=== PATIENT | male | born 1945 | race Caucasian/White ===

== ENCOUNTER 2022-07-05 05:39 | Inpatient (IN) | payer MEDICARE ==
[2022-06-29 16:36] LABS: CLARITY,URINE CLEAR (Clear); GLUCOSE, URINE >=1000 mg/dl (Neg); KETONES,URINE NEGATIVE (Neg); LEUKOCYTE ESTERASE ,URINE NEGATIVE (Neg); NITRITES, URINE NEGATIVE (Neg); OCCULT BLOOD,URINE NEGATIVE (Neg); PROTEIN,URINE NEGATIVE (Neg); UROBILINOGEN,URINE 0.2 E.U/dL (0.2-1.0)
[2022-06-29 16:41] LABS: BASOPHILS % (AUTO) 0.6 % (0-1); EOSINOPHILS # (AUTO) 0.1 X10'3 (0-0.9); EOSINOPHILS % (AUTO) 1.2 % (0-6); LYMPHOCYTES # (AUTO) 1.7 X10'3 (1.1-4.8); LYMPHOCYTES % (AUTO) 24.4 % (21-51); MEAN CORPUSCULAR HEMOGLOBIN 29.6 PG (27.0-31.0); MEAN CORPUSCULAR HGB CONC 33.8 g/dL (33.0-36.5); MEAN CORPUSCULAR VOLUME 87.6 FL (78-98); MEAN PLATELET VOLUME 7.8 FL (7.4-10.4); MONOCYTES # (AUTO) 0.9 X10'3 (0-0.9); MONOCYTES % (AUTO) 12.1 % (2-12); NEUTROPHILS # (AUTO) 4.4 X10'3 (1.8-7.7); NEUTROPHILS % (AUTO) 61.7 % (42-75); PRE OP HEMATOCRIT 42.2 % (42.0-52.0); PRE OP HEMOGLOBIN 14.3 g/dL (14.0-17.9); PRE OP PLATELET COUNT 235 X10'3 (140-440); RED BLOOD COUNT 4.82 X10'6 (4.70-6.10); RED CELL DISTRIBUTION WIDTH 13.8 % (11.5-14.5)
[2022-06-29 16:48] LABS: ALBUMIN/GLOBULIN RATIO 1.2 (1.1-1.5); ALKALINE PHOSPHATASE 64 IU/L (46-116); BLOOD UREA NITROGEN 15 MG/DL (7-18); BUN/CREATININE RATIO 14.3 (5.4-32.0); CALCIUM 9.1 MG/DL (8.5-10.1); CHLORIDE 103 MMOL/L (99-107); CREATININE 1.05 MG/DL (0.60-1.10); PRE OP ALT 23 U/L (30-65); PRE OP ANION GAP 12 (8-16); PRE OP AST 20 U/L (10-37); PRE OP BILIRUB, TOTAL 0.3 MG/DL (0.0-1.0); PRE OP GLUCOSE 138 MG/DL (70-104); PRE OP POTASSIUM 3.7 MMOL/L (3.4-5.1); PRE OP SODIUM 141 MMOL/L (135-145); TOTAL CARBON DIOXIDE 26.3 MMOL/L (24-32); TOTAL PROTEIN 7.4 G/DL (6.4-8.2); eGFR 68 ML/MIN
[2022-06-29 17:00] LABS: COLOR,URINE STRAW (Yellow); UA COLLECTION TYPE CLN CATCH MIDSTREAM
[2022-06-29 17:10] LABS: BACTERIA,URINE NONE SEEN /HPF (Neg); MUCUS STRANDS FEW /LPF (Neg); RBC,URINE NONE SEEN /HPF (0-2); SQUAMOUS EPITHELIAL CELL,UR FEW /LPF (FEW); WBC,URINE 0-4 /HPF (0-4); YEAST FEW /HPF (NEGATIVE)
[2022-06-29 17:21] LABS: HEMOGLOBIN A1C 6.8 % (4.5-6.2)
[2022-07-05] VITALS (18 sets, daily range): BP systolic 119–152; BP diastolic 37–71
[~2022-07-05] VITALS: Ht 167.6 cm; Wt 89.2 kg
[~2022-07-05 05:39] MED LIST: CHOL100046 PO; CYAN250010 PO; EMPA25TA PO; ENAL2.5T69 PO; GABA300C PO; GLIM4TAB PO; INSU3INS2 SUBCUT; MAGN400C PO; METF-900 PO; ROSU20TA2 PO; ZET10T PO; ceFAZolin inj. 2,000 MG in dextrose 5%-water 100 ML IV ONE; famotidine 20mg tablet PO ONE; tranexamic acid 650mg tablet PO ONE; vancomycin 1,500 MG in NS 300ml IV soln IV ONE
--- NOTE | 2022-07-05 06:00 | NUR ---
CSM: PEDAL PULSES PRESENT. MUPIROCIN CREAM ORDERED FOR THIS PATIENT. PATIENT DID NOT WATCH VIDEO. PATIENT EDUCATED ON THE USE OF THE INCENTIVE SPIROMETER.
[2022-07-05] MEDS: ringers solution, lacted 1,000 ML IV SCH ×2 (07:01→19:13)
[2022-07-05] MEDS ORDERED: ROPIVAcaine 0.5% (5mg/ml) 30ml vial ONE ×2 (07:10→08:07)
[2022-07-05] MEDS ORDERED: ketorolac trometh. 30mg/ml inj. ONE (08:07)
[2022-07-05] MEDS ORDERED: ondansetron/PF 4mg/2ml inj ONE (08:30)
[2022-07-05] MEDS ORDERED: propofol inj 20 ML IV ONE (08:30)
[2022-07-05] MEDS ORDERED: LIDOcaine 2% (20mg/ml) 5ml vial ONE (08:30)
[2022-07-05] MEDS ORDERED: fentaNYL/PF 50MCG/1 ML 2ML syringe ONE (08:31)
[2022-07-05] MEDS ORDERED: dexamethasone sod phosphate 10mg/ml inj ONE (08:32)
[2022-07-05] MEDS ORDERED: sevoflurane 250ml liquid IH ONE (08:32)
[2022-07-05] MEDS ORDERED: labetalol 20mg/4ml (5mg/ml) syringe IV PRN (09:35)
[2022-07-05] MEDS ORDERED: morphine 2 MG/ML inj. syringe IV PRN (09:35)
[2022-07-05] MEDS ORDERED: hydrALAZINE 20mg/ml inj. IV PRN (09:35)
[2022-07-05] MEDS ORDERED: ROPIVAcaine 0.2%/PF PUMP/bolus 545 ML INTERSCALE SCH (09:35)
[2022-07-05] MEDS ORDERED: morphine 4 MG/ML inj SYRINge IV PRN (09:35)
[2022-07-05] MEDS ORDERED: ROPIVAcaine 0.2% (10 MG/5 ML) BOLUS INJECTION INTERSCALE PRN (09:35)
[2022-07-05] MEDS ORDERED: fentaNYL/PF 50MCG/1 ML 2ML syringe IV PRN ×2 (09:35)
[2022-07-05] MEDS ORDERED: ondansetron/PF 4mg/2ml inj IV PRN ×2 (09:35→10:35)
[2022-07-05] MEDS ORDERED: ringers solution, lacted 1,000 ML IV SCH (09:35)
[2022-07-05] MEDS ORDERED: ePHEDrine 50MG/ML INJ. ONE (09:47)
--- NOTE | 2022-07-05 10:26 | NUR ---
Received from OR via HOSPITAL BED , accompanied by Anesthesiologist ANA and report given by Anesthesiolgist. PT ARRIVES DROWSY, AWAKENS TO PHYSICAL STIMULATION, ON O2 MASK, VSS, REPORTS NO PAIN. BREATHING NORMAL. Addendum: 07/05/22 at 1043 by Lester Andersen RN Amended: Links added.
[2022-07-05] MEDS ORDERED: HYDROmorphone 1 mg/ml syringe IV PRN (10:35)
[2022-07-05] MEDS ORDERED: bisacodyl 10mg suppository rectal RC PRN (10:35)
[2022-07-05] MEDS ORDERED: HYDROcodone/acetaminophen 10/325mg tab PO PRN ×2 (10:35)
[2022-07-05] MEDS ORDERED: magnesium hydroxide 30ml (MOM) UD suspension PO PRN (10:35)
[2022-07-05] MEDS ORDERED: oxyCODONE IR 5mg (immed. release) tablet PO PRN ×2 (10:35)
[2022-07-05] MEDS ORDERED: diphenhydrAMINE 25mg capsule PO PRN ×2 (10:35)
[2022-07-05] MEDS ORDERED: HYDROmorphone inj. 0.5 MG/0.5 ML DISP.SYRIN IV PRN (10:35)
[2022-07-05] MEDS ORDERED: naloxone 0.4 mg/ml inj IV PRN (10:35)
[2022-07-05] MEDS ORDERED: acetaminophen 325mg tablet PO PRN (10:35)
--- NOTE | 2022-07-05 11:26 | NUR ---
Report called to receiving nurse ASHLEY RN. Transferred via HOSPITAL BED WITH Belongings. PERSONAL ITEMS BAG WITH PT UPON ROOMING TO 4023A. PT REPORTS NO PAIN, BG 130, PT VOIDED APPROX 120 ML CLEAR YELLOW URINE. PT EDUCATION PROVIDED FOR ROPIVICAINE PUMP. ADVISED WHO IS AT BEDSIDE OF PHARMACY NEED TO BRING IN PERSONAL INSULIN PEN, PT/ LIVE IN [facility] AND ARE UNABLE TO BRING TO HOSPITAL, ENDORSED TO RECEIVING RN. PT DELIVERED TO ROOM WITHOUT INCIDENT, CALL LIGHT WITHIN REACH, BED IN LOW POSITION. . Special Issues communicated to receiving nurse. Addendum: 07/05/22 at 1146 by Lester Andersen RN Amended: Links added.
[2022-07-05] MEDS: potassium cl 20mEq in 1/2 NS 1,000 ML IV SCH ×3 (12:11→22:17)
[2022-07-05] MEDS: acetaminophen 325mg tablet PO SCH ×2 (14:07→20:07)
[2022-07-05] MEDS: ceFAZolin/D5W- 1GM premix 50 ML IV SCH ×2 (16:23→23:29)
--- NOTE | 2022-07-05 18:30 | NUR ---
Patient in room ORTHO 4023. I have received report from Anastasia MAC and had the opportunity to ask questions and assume patient care.
--- NOTE | 2022-07-05 18:43 | NUR ---
Problems reprioritized. Patient report given, questions answered & plan of care reviewed with JODI Chin.
--- NOTE | 2022-07-05 18:46 | NUR ---
Problems reprioritized. Patient report given, questions answered & plan of care reviewed with JODI Campos.
[2022-07-05] MEDS ORDERED: vancomycin/NS 1 GM ADD-VANTAGE 250 ML IV SCH (20:00)
[2022-07-05] MEDS ORDERED: MESSAGE TO PHARMACY PO ONE (20:00)
[2022-07-05] MEDS ORDERED: glucagon, human recombinant 1mg kit SUBCUT PRN (20:00)
[2022-07-05] MEDS ORDERED: dextrose 50%-water 50ml dispensing syringe IV PRN ×2 (20:00)
[2022-07-05] MEDS ORDERED: DEXTROSE 15 GM of carb/4 tabs (each vial/BOTTLE has 4 tablets) PO PRN ×2 (20:00)
[2022-07-05] MEDS ORDERED: insulin Lispro (HumaLOG) vial - multi-dose SQ SCH (20:00)
[2022-07-05] MEDS: metFORMIN 500mg tablet PO SCH (20:07)
[2022-07-05] MEDS ORDERED: insulin glargine (Lantus) pen - multi-dose SQ SCH (21:00)
[2022-07-05] MEDS ORDERED: sennosides 8.6mg tablet PO SCH (21:00)
--- NOTE | 2022-07-05 23:00 | NUR ---
Patient woke up complaining of SOB. I sat him up to high fowlers and administered 6L of oxygen. He was having a hard time getting air in per patient. Asked Charge nurse to come and evaluate him with me. D/T his anesthesia and the way he was laying, that could be the potential cause of the SOB. Patient sat at edge of bed to catch his breath and ended up feeling better within a few minutes. I turned him down to 3L and he is comfortable. He is laying in bed high fowlers position for remainder of the night.
[2022-07-06] MEDS: acetaminophen 325mg tablet PO SCH ×2 (01:43→09:06)
[2022-07-06 02:00] VITALS: BP 116/52
--- NOTE | 2022-07-06 02:16 | NUR ---
Agree with Beth REGISTERED MASSAGE THERAPIST assessment.
[2022-07-06 06:00] VITALS: BP 134/60
--- NOTE | 2022-07-06 06:13 | NUR ---
Problems reprioritized. Patient report given, questions answered & plan of care reviewed with Anastasia MAC.
[2022-07-06 06:23] LABS: BASOPHILS % (AUTO) 0.1 % (0-1); EOSINOPHILS % (AUTO) 0 % (0-6); HEMATOCRIT 38.7 % (42.0-52.0); LYMPHOCYTES # (AUTO) 0.8 X10'3 (1.1-4.8); MEAN CORPUSCULAR HEMOGLOBIN 29.6 PG (27.0-31.0); MEAN CORPUSCULAR HGB CONC 33.6 g/dL (33.0-36.5); MEAN CORPUSCULAR VOLUME 88.2 FL (78-98); MEAN PLATELET VOLUME 8.3 FL (7.4-10.4); MONOCYTES # (AUTO) 1.3 X10'3 (0-0.9); MONOCYTES % (AUTO) 11.3 % (2-12); NEUTROPHILS # (AUTO) 9.4 X10'3 (1.8-7.7); NEUTROPHILS % (AUTO) 81.6 % (42-75); PLATELET COUNT 195 X10'3 (140-440); RED BLOOD COUNT 4.38 X10'6 (4.70-6.10); RED CELL DISTRIBUTION WIDTH 13.8 % (11.5-14.5); WHITE BLOOD COUNT 11.5 X10'3 (4.5-11.0)
--- NOTE | 2022-07-06 06:35 | NUR ---
Patient in room ORTHO 4023. I have received report from JODI Campos and had the opportunity to ask questions and assume patient care.
[2022-07-06 06:46] LABS: ANION GAP 11 (8-16); CHLORIDE 105 MMOL/L (99-107); POTASSIUM 4.5 MMOL/L (3.5-5.1); SODIUM 138 MMOL/L (135-145); TOTAL CARBON DIOXIDE 21.6 MMOL/L (24-32)
[2022-07-06] MEDS ORDERED: lisinopril 5mg tablet PO SCH (08:00)
[2022-07-06] MEDS ORDERED: cyanocobalamin 500mcg tablet PO SCH (08:00)
[2022-07-06] MEDS ORDERED: magnesium oxide 400mg tablet PO SCH (08:00)
[2022-07-06] MEDS ORDERED: ezetimibe 10mg tablet PO SCH (08:00)
[2022-07-06] MEDS ORDERED: EMPAGLIFLOZIN 25 MG TABLET PO SCH (08:00)
[2022-07-06] MEDS ORDERED: cholecalciferol (vitamin D3) 1,000 unit (25mcg) tablet PO SCH (08:00)
[2022-07-06] MEDS ORDERED: LIXISENATIDE SQ SCH (08:00)
[2022-07-06] MEDS ORDERED: atorvastatin 20mg tablet PO SCH (08:00)
[2022-07-06] MEDS ORDERED: INSULIN GLARGINE SQ SCH (08:00)
[2022-07-06] MEDS ORDERED: gabapentin 300mg capsule PO SCH (08:00)
[2022-07-06] MEDS ORDERED: aspirin 325mg tablet PO SCH (08:30)
[2022-07-06 09:08] VITALS: BP_SYST 134
[2022-07-06] MEDS: metFORMIN 500mg tablet PO SCH (09:09)
--- NOTE | 2022-07-06 10:41 | NUR ---
Patient was discharged at 1000 with instructions and verbalizing understanding of instructions, in wheelchair accompanied by family and nursing staff going home via private vehicle. All lines and tubes including PIV with intact cannula have been removed. Diabetic education has been provided and all questions have been answered. Patient already has a follow up appointment with Dr. Giles. Patient is stable and appropriate for discharge.
--- NOTE | 2022-07-06 12:36 | NUR ---
Joint surgery consult: Pt s/p R shoulder surgery this admit per EMR. Pt discharged prior to RD visit; written high protein diet ed w/ RD contact information mailed to pt home address provided in EMR. Addendum: 07/06/22 at [address] Amended: Links added.
[2022-07-06] MEDS ORDERED: celeCOXIB 100mg capsule PO SCH (20:00)
[2022-07-07] MEDS ORDERED: acetaminophen 325mg tablet PO PRN (10:35)
== END 2022-07-06 10:00 | disposition home or self-care (01) | DRG 483 ==
LOC: PAS 05:39 → EDSTATUS 07:30 → PAS IN 10:38 → ORTHO 4S 11:55
PROVIDERS: ADMIT Orthopaedic Surgery; ATTEND Orthopaedic Surgery
PROC: 0LS30ZZ Reposition Right Upper Arm Tendon, Open Approach (ICD-10-PCS; 2022-07-05)
PROC: 3E0T3BZ Introduction of Anesthetic Agent into Peripheral Nerves and Plexi, Percutaneous Approach (ICD-10-PCS; 2022-07-05)
PROC: 3E0T33Z Introduction of Anti-inflammatory into Peripheral Nerves and Plexi, Percutaneous Approach (ICD-10-PCS; 2022-07-05)
PROC: 0RRJ00Z Replacement of Right Shoulder Joint with Reverse Ball and Socket Synthetic Substitute, Open Approach (ICD-10-PCS; principal; 2022-07-05 08:32)
DX: M19.011 Primary osteoarthritis, right shoulder (principal); M65.811 Other synovitis and tenosynovitis, right shoulder; M75.121 Complete rotator cuff tear or rupture of right shoulder, not specified as traumatic; M75.21 Bicipital tendinitis, right shoulder
CPT/HCPCS: 36415; 80051; 80053; 81001; 82948; 83036; 85025; 87081; 87811; 97110; 97116; 97161; 97530; A4215; A4615; A4618; A7000; C1776; G0378; J0690; J1100; J1815; J1885; J2405; J2704; J2795; J3010; J3370; J3480; J3490; J7040; J7060; J7120